=== PATIENT | female | born 1975 | race Caucasian/White ===

== ENCOUNTER → 2016-09-11 | Outpatient (CLI) | payer BC ==
[~2016-09-11] MED LIST: ATV/1 PO; ESCI10TA17 PO; OMEP20CA9 PO
--- NOTE | 2016-09-11 16:00 | MAMMOGRAPHY REPORT ---
BILATERAL DIGITAL SCREENING MAMMOGRAM TOMOSYNTHESIS WITH CAD: 09/11/2016 CLINICAL HISTORY: Routine screening. Patient has no complaints. TECHNIQUE: Breast tomosynthesis in addition to standard 2D mammography was performed. Current study was also evaluated with a Computer Aided Detection (CAD) system. COMPARISON: Comparison is made to exams dated: 09/11/2015 mammogram, 09/08/2014 mammogram, 06/20/2013 ma mmogram - [facility], 07/19/2004 mammogram, 08/17/2003 mammogram, and 07/20/2003 mammogra m - [facility]. BREAST COMPOSITION: The tissue of both breasts is heterogeneously dense, which may obscure small mas ses. FINDINGS: The parenchymal pattern is unchanged. No developing mass, architectural distortion or clus ter of suspicious microcalcifications is seen in either breast. IMPRESSION: ACR BI-RADS CATEGORY 2: BENIGN There is no mammographic evidence of malignancy. A 1 year screening mammogram is recommended. The pa tient will receive written notification of the results. Approximately 10% of breast cancers are not detected with mammography. A negative mammographic report should not delay biopsy if a clinically suggestive mass is present. Melany Benson M.D. ay/:09/11/2016 15:05:28 Irish Moss Gatherer: Shana Lewis, [facility] letter sent: Normal 1/2 BI-RADS Code: ACR BI-RADS Category 2: Benign
== END | disposition home or self-care (01) ==
LOC: C.MAMM 11:48
PROVIDERS: ATTEND Obstetrics & Gynecology
DX: Z12.31 Encounter for screening mammogram for malignant neoplasm of breast (principal)

== ENCOUNTER → 2017-02-24 | Outpatient (CLI) | payer BC | END | disposition home or self-care (01) | LOC: C.PAPS 15:26 | PROVIDERS: ATTEND Obstetrics & Gynecology | DX: Z01.419 Encounter for gynecological examination (general) (routine) without abnormal findings (principal) ==

== ENCOUNTER → 2017-09-15 | Outpatient (CLI) | payer BC ==
--- NOTE | 2017-09-15 15:22 | MAMMOGRAPHY REPORT ---
BILATERAL DIGITAL SCREENING MAMMOGRAM TOMOSYNTHESIS WITH CAD: 09/15/2017 CLINICAL HISTORY: Routine screening. Patient has no complaints. TECHNIQUE: The study was acquired using full field digital technology and interpreted from soft copy. Breast tomosynthesis in addition to standard 2D mammography was performed. Current study was also ev aluated with a Computer Aided Detection (CAD) system. COMPARISON: Comparison is made to exams dated: 09/11/2015 mammogram, 09/08/2014 mammogram, 06/20/2013 ma mmogram - [facility], 07/19/2004 mammogram, and 08/17/2003 mammogram - [facility]. BREAST COMPOSITION: The tissue of both breasts is extremely dense, which lowers the sensitivity of ma mmography. FINDINGS: There is a partially circumscribed and obscured 5 mm mass in the 11:00 middle one third of the right breast, for which additional targeted ultrasound and possible additional mammographic views are recommended. No other suspicious mass, architectural distortion or cluster of microcalcifications is seen. IMPRESSION: ACR BI-RADS CATEGORY 0: INCOMPLETE EVALUATION: NEED ADDITIONAL IMAGING EVALUATION The partially circumscribed and obscured 5 mm mass in the 11:00 right breast needs additional evaluat ion. The patient will be called to schedule an appointment. Some breast cancers are not detected with mammography. A negative mammographic report should not primitivo y biopsy if a clinically suggestive mass is present. Melany Benson M.D. ay/:09/15/2017 15:01:57 Grain Merchandising Manager: RT Ely(R)(M), [facility] letter sent: Addl Imaging 0 BI-RADS Code: ACR BI-RADS Category 0: Incomplete Evaluation: Need Additional Imaging Evaluation
== END | disposition home or self-care (01) ==
LOC: C.MAMM 09:45
PROVIDERS: ATTEND Obstetrics & Gynecology
DX: Z12.31 Encounter for screening mammogram for malignant neoplasm of breast (principal); N63.11 Unspecified lump in the right breast, upper outer quadrant

== ENCOUNTER → 2017-09-23 | Outpatient (CLI) | payer BC ==
--- NOTE | 2017-09-24 15:13 | MAMMOGRAPHY REPORT ---
UNILATERAL RIGHT DIGITAL DIAGNOSTIC MAMMOGRAM TOMOSYNTHESIS AND RIGHT ULTRASOUND: 09/23/2017 CLINICAL HISTORY: Callback from screening mammogram for right breast mass. TECHNIQUE: The study was acquired using full field digital technology and interpreted from soft copy. Breast tomosynthesis in addition to standard 2D mammography was performed. Spot compression right C C and MLO 2D and tomosynthesis images were obtained. COMPARISON: Comparison is made to exams dated: 09/15/2017 mammogram, 09/11/2016 mammogram, 09/11/2015 m ammogram, 09/08/2014 mammogram, 06/20/2013 mammogram - [facility], and 07/19/2004 [facility] [place]. BREAST COMPOSITION: The tissue of right breast is extremely dense, which lowers the sensitivity of ma mmography. FINDINGS: The partially circumscribed and partially obscured small mass seen within the right upper outer quadr ant at approximately 11:00 is still evident on the spot compression images, although was better visua lized on the screening mammogram. Targeted ultrasound was performed of the right breast in the regio n of the mammographic mass. In the right breast at 11:00, approximately 3 cm from the nipple, there is an oval circumscribed anechoic mass which measures 6 x 4 x 3 mm. This corresponds with the mammog raphic mass and is consistent with a benign simple cyst. A few other small benign cysts were seen du ring the exam in the right 11:00 breast. IMPRESSION: ACR BI-RADS CATEGORY 2: BENIGN, ULTRASOUND ACR BI-RADS CATEGORY 2: BENIGN Benign 6 mm cyst in the right 11:00 breast on ultrasound, which corresponds with the mammographic mas s. There is no mammographic or sonographic evidence of malignancy. A 1 year screening mammogram is r ecommended.(09/24/2018) The patient has been verbally notified of the results. Some breast cancers are not detected with mammography. A negative mammographic report should not primitivo y biopsy if a clinically suggestive mass is present. Ani Stokes M.D. ah/:09/23/2017 14:05:54 Craft Superintendent: Shana Lewis, [facility] letter sent: Normal 1/2 OVERALL STUDY BIRADS: 2 Benign
== END | disposition home or self-care (01) ==
LOC: C.MAMM 13:34
PROVIDERS: ATTEND Obstetrics & Gynecology
DX: N60.01 Solitary cyst of right breast (principal)